=== PATIENT | male | born 1970 | race African-American/Black ===

== ENCOUNTER 2017-11-01 20:09 | Emergency (ER) | payer BC ==
[~2017-11-01] VITALS: Ht 182.9 cm; Wt 74.3 kg
[2017-11-01 20:12] VITALS: TEMP 36.7; Ht 182.9 cm; Wt 74.3 kg
[2017-11-01] MEDS ORDERED: IBUPROFEN 200 MG TAB PO STA (20:35)
[2017-11-01] MEDS ORDERED: AMOXICILLIN 500 MG CAP PO STA (20:35)
[2017-11-01] MEDS ORDERED: HYDR-5688 PO ×2 (20:46→20:58)
[2017-11-01] MEDS ORDERED: CYCL10TA6 PO ×2 (20:46→20:58)
[2017-11-01] MEDS ORDERED: AMOX500C3 PO ×2 (20:46→20:58)
[2017-11-01] MEDS ORDERED: PRED50TA PO ×2 (20:46→20:58)
[2017-11-01] MEDS ORDERED: AMOXICILLIN 250 MG CAP PO ONE (20:50)
--- NOTE | 2017-11-01 20:51 | EMERGENCY ROOM VISIT NOTE ---
History First contact with patient: 20:17 Chief Complaint: PAIN (GENERALIZED) Stated Complaint: L SEVERE BACK PAIN,L SEVERE TOOTH PAIN History of Present Illness The patient is a 47 year old male who presents to the Emergency Room with complaints of right upper molar pain that has been bothering since yesterday. He does not remember biting down on anything or injuring the tooth. He denies any fever or chills. He denies any foul discharge in the mouth. He has tried Tylenol with minimal relief of the pain. The patient is typically from [place]. He is up in [employer] for 8 months for work. He does not have a dentist in the area. The patient is also complaining of right lower back pain. This is been going on for the last several days. He denies any injury. The pain is worse with movement. He denies any lower extremity weakness. No numbness or tingling down the legs or into the groin. No problems urinating or with bowel movements. Again Tylenol does not seem to be helping the pain. Review of Systems 10 system review performed and negative unless noted in HPI or below Past Medical/Surgical History The patient is otherwise healthy Social History Smoking Status: Current Some Day Smoker Occupation Status: employed Current/Historical Medications Scheduled Amoxicillin (Amoxil), 500 MG PO TID Cyclobenzaprine Hcl (Flexeril), 10 MG PO TID Prednisone (Prednisone), 50 MG PO DAILY Scheduled PRN Hydrocodone/Acetaminophen 5MG/325MG (Elba 5MG/325MG), 1-2 TABLET PO Q4H PRN for Pain Physical Exam Vital Signs Date Time Temp Pulse Resp B/P (MAP) Pulse Ox O2 Delivery O2 Flow Rate FiO2 11/01/17 21:20 87 19 129/78 99 11/01/17 20:12 36.7 72 18 121/78 96 Room Air Physical Exam VITALS: Vitals are noted on the nurse's note and reviewed by myself. Vital signs stable. GENERAL: 47-year-old male, mildly uncomfortable,, nondiaphoretic, well- developed well-nourished. SKIN: The skin was without rashes, erythema, edema, or bruising. HEAD: Normocephalic atraumatic. EYES: Conjunctivae without injection, sclerae without icterus. Extraocular movements intact. NOSE: Patent, turbinates without inflammation or discharge. No sinus tenderness. MOUTH: Mucous membranes moist. Tonsils are not enlarged. Pharynx without erythema or exudate. Uvula midline. Airway patent. Tongue does not deviate. The right upper molar is slightly carious. The surrounding gum is moderately erythematous and edematous. No drainage noted. Dental hygiene is overall fair. NECK: Supple without nuchal rigidity. No lymphadenopathy. Cervical spine is nontender. No JVD. HEART: Regular rate and rhythm without murmurs gallops or rubs. LUNGS: Clear to auscultation bilaterally without wheezes, rales or rhonchi. No accessory muscle use. MUSCULOSKELETAL: No tenderness to palpation over the lumbar spinous processes. Mild tenderness over the right SI joint. Tenderness in the lumbar right paraspinous muscles. No muscle spasms present. Quadricep and hamstring strength is 5/5 bilaterally. Sensation in the lower extremities is intact. No muscle atrophy, erythema, or edema noted. . Strength 5/5 throughout. NEURO: Patient was alert and oriented to person place and time. Normal sensation to touch. No focal neurological deficits. Medical Decision & Procedures Medications Administered Medications (Trade) Dose Ordered Sig/Ruy Route Start Time Stop Time Status Last Admin Dose Admin Amoxicillin (Amoxil Cap) 500 mg NOW STAT PO 11/01/17 20:35 11/01/17 20:37 DC 11/01/17 20:54 500 MG Ibuprofen (Advil Tab) 800 mg NOW STAT PO 11/01/17 20:35 11/01/17 20:37 DC 11/01/17 20:55 800 MG ED Course The patient was seen and examined He was medicated with 1 dose of amoxicillin 500 mg and Motrin 800 mg Discharge instructions were thoroughly reviewed, and he was discharged in good condition Medical Decision Differential diagnosis: Muscular pain spine fracture, ligamentous injury, subluxation, spondylolisthesis, spondylosis, herniated disc, contusion, muscle spasm, dental caries, periapical abscess, fracture This patient is a 47-year-old male presents to the emergency department with right upper molar pain and low back pain. On exam, his gum was swollen around the right upper molar consistent with an infection. His back pain is likely muscular in nature. There was no trauma. I did not find imaging necessary. The patient will be treated with amoxicillin for a dental infection. He was given a short course of narcotics, muscle relaxants and steroids. He was given information for a dentist in [facility]. He will return to the emergency department with any new or worsening symptoms This chart was completed in part utilizing [employer] Speech Voice Recognition software. Attempts were made to minimize the grammatical errors, random word insertions, pronoun errors and incomplete sentences. Any formal questions or concerns about the content, text or information contained within the body of this dictation should be directly addressed to the provider for clarification. Medication Reconcilliation Current Medication List: was personally reviewed by me Blood Pressure Screening Patient's blood pressure: Normal blood pressure Impression Primary Impression: Pain, dental Additional Impression: Back pain Departure Information Dispostion Home / Self-Care Condition GOOD Prescriptions Cyclobenzaprine Hcl (FLEXERIL) 10 Mg Tab 10 MG PO TID for Muscle Spasms, #20 TAB Prov: Josefina Price PA-C 11/01/17 Prednisone (Prednisone) 50 Mg Tab 50 MG PO DAILY for 4 Days, #4 TAB Prov: Josefina Price PA-C 11/01/17 Hydrocodone/Acetaminophen 5MG/325MG (Elba 5MG/325MG) Tab 1-2 TABLET PO Q4H Y for Pain, #15 TAB For Initial Treatment Prov: Josefina Price PA-C 11/01/17 Amoxicillin (AMOXIL) 500 Mg Cap 500 MG PO TID, #30 CAP Prov: Josefina Price PA-C 11/01/17 Referrals No Doctor, Assigned (PCP) Mehdi Dubose D.D.S. Patient Instructions My [facility] Additional Instructions You have been seen in the emergency department for dental pain and back pain. Please take the ENTIRE course of amoxicillin for the dental infection Please take the entire course of prednisone for back pain Flexeril every 8 hours as needed for muscle spasm/pain. Please also do not drink alcohol or drive while taking this medication. Ibuprofen 600 mg every 6 hours Elba 1-2 tabs every 4 hours for severe pain. Do not drink alcohol or drive while taking this medication. This may be taken with ibuprofen, but avoid Tylenol. It is very important to follow-up with a dentist for definitive treatment of the dental pain Please rest. No strenuous activity while your back is still painful. If this is an acute injury, please apply ice for 20 minute intervals at a time. It is also follow-up with her primary care physician as soon as possible Do not hesitate to return to the emergency department with any new, worsening or concerning symptoms It was a pleasure participating in your care today Problem Qualifiers
[2017-11-01 21:20] VITALS: BP 129/78; PULSE 87; O2SAT 99
== END 2017-11-01 21:21 | disposition home or self-care (01) ==
LOC: C.EDB 20:10 → C.EDD 21:21
DX: K08.89 Other specified disorders of teeth and supporting structures (principal); M54.5 Low back pain; F17.200 Nicotine dependence, unspecified, uncomplicated